=== PATIENT | male | born 1955 | race Caucasian/White ===

== ENCOUNTER 2018-02-25 10:53 | Day surgery (SDC) ==
[2014-12-12 16:42] VITALS: BMI 24.3
[2018-02-25] MEDS ORDERED: LIDOCAINE 1% 20 ML MDV ID STA (11:42)
[2018-02-25] MEDS ORDERED: VERSED ONE (12:40)
[2018-02-25] MEDS ORDERED: DIPRIVAN 20 ML VIAL IVP ONE (12:40)
[2018-02-25 15:38] VITALS: BP 108/56; TEMP 98.6
--- NOTE | 2018-02-26 10:57 | OP ---
PROCEDURE: COLONOSCOPY TO THE CECUM WITH SNARE POLYPECTOMY. ENDOSCOPIST: Konrad JIM M.D. INDICATION: HISTORY OF POLYPS INSTRUMENT: [employer]-[id number]. MEDICATION: PER ANESTHESIA. PROCEDURE: The patient was positioned for colonoscopy. The digital rectal exam was negative. The colonoscope was inserted through the anus and advanced to the cecum. The cecum was identified using the ileocecal valve and the appendiceal orifice as landmarks. The scope was slowly withdrawn through an adequately prepped colon. Edwards Bowel Prep Score 2+3+3=8. Small polyp removed in the ascending colon using cold snare polypectomy. Second small polyp at the hepatic flexure using cold snare polypectomy. Diverticulosis noted in the left colon. The retroflex exam was notable for hemorrhoids. The patient tolerated the procedure without immediate complication. Withdraw time 8 minutes and 45 seconds. PLAN: 1. Suggest repeat colonoscopy in 5 years CC: Dr. Kaushal ROBLES
== END 2018-02-25 13:45 | disposition home or self-care (01) ==
LOC: SURG 10:53
PROVIDERS: ATTEND Internal Medicine Gastroenterology
DX: Z09 Encounter for follow-up examination after completed treatment for conditions other than malignant neoplasm (principal); Z86.010 Personal history of colon polyps; D12.2 Benign neoplasm of ascending colon; D12.3 Benign neoplasm of transverse colon; K57.30 Diverticulosis of large intestine without perforation or abscess without bleeding; K64.9 Unspecified hemorrhoids